=== PATIENT | male | born 1955 | race Caucasian/White ===

== ENCOUNTER → 2021-03-31 | Day surgery (SDC) | payer OTHER ==
[~2021-03-31] VITALS: Ht 185.4 cm; Wt 88.5 kg
[~2021-03-31] MED LIST: CANDESARTAN CIL32 MG PO; CLEOCIN300 MG PO; DICLOFENAC POTA50 MG PO; HYDROCHLOROTH12.5 MG PO; LIPITOR40 MG PO; SIMVASTATIN20 MG PO; SULFAMETHOXAZO1 EACH PO; VITAMIN B-121000 MC1 PO; VITAMIN C1000 MG PO; VITAMIN D PO; ZOLOFT25 MG PO
== END | disposition home or self-care (01) ==
LOC: FAS 12-06 12:00
DX: Z12.11 Encounter for screening for malignant neoplasm of colon (principal); M19.90 Unspecified osteoarthritis, unspecified site; I10 Essential (primary) hypertension; E78.00 Pure hypercholesterolemia, unspecified; K62.1 Rectal polyp; Z88.0 Allergy status to penicillin; Z96.659 Presence of unspecified artificial knee joint; Z72.89 Other problems related to lifestyle
CPT/HCPCS: J2250; J2704; J7120